=== PATIENT | female | born 1960 | race Caucasian/White ===

== ENCOUNTER 2024-06-07 14:27 | Emergency (ER) | payer OTHER, BC ==
[~2024-06-07] VITALS: Ht 152.4 cm; Wt 68.0 kg
[~2024-06-07 14:27] MED LIST: MEDDOSEPAK PO
[2024-06-07 14:41] VITALS: BP 141/80
[2024-06-07] MEDS ORDERED: METHOCARBAMOL 500 MG/TAB PO ONE (14:55)
[2024-06-07] MEDS ORDERED: KETOROLAC TROMETHAMINE 30 MG/ML SDV IM ONE (14:55)
[2024-06-07 15:00] VITALS: BP 121/78
[2024-06-07] MEDS ORDERED: predniSONE 20 MG/TAB PO ONE (15:00)
[2024-06-07] MEDS ORDERED: METHOCARBAMOL500 MG PO (15:44)
[2024-06-07] MEDS ORDERED: NAPROXEN500 MG PO (15:44)
[2024-06-07 16:00] VITALS: BP 121/78
== END 2024-06-07 16:00 | disposition home or self-care (01) | DRG 552 ==
LOC: ED 14:27
DX: S16.1XXA Strain of muscle, fascia and tendon at neck level, initial encounter (principal); I10 Essential (primary) hypertension; J44.9 Chronic obstructive pulmonary disease, unspecified; K21.9 Gastro-esophageal reflux disease without esophagitis; E78.00 Pure hypercholesterolemia, unspecified; V43.52XA Car driver injured in collision with other type car in traffic accident, initial encounter; Z72.0 Tobacco use